=== PATIENT | male | born 1975 | race Caucasian/White ===

== ENCOUNTER 2016-12-24 06:51 | Emergency (ER) | payer OTHER | END 2016-12-24 10:00 | disposition home or self-care (01) | LOC: ER1 06:51 | DX: S16.1XXA Strain of muscle, fascia and tendon at neck level, initial encounter (principal); S39.012A Strain of muscle, fascia and tendon of lower back, initial encounter; V43.52XA Car driver injured in collision with other type car in traffic accident, initial encounter; Y92.410 Unspecified street and highway as the place of occurrence of the external cause | CPT/HCPCS: 72070; 72125; 72131; 96372; 99284; J1885 ==

== ENCOUNTER 2022-05-26 21:06 | Emergency (ER) | payer OTHER | END 2022-05-26 22:09 | disposition left against medical advice (07) | LOC: ER1 21:06 | DX: Z53.21 Procedure and treatment not carried out due to patient leaving prior to being seen by health care provider (principal) ==